=== PATIENT | female | born 1945 | race African-American/Black ===

== ENCOUNTER 2019-05-07 10:13 | Emergency (ER) | payer MEDICARE, MEDICAID ==
[2019-05-07 10:53] LABS: #Basophils 0.1 thou/uL (0.0-0.2); #Eosinphils 0.1 thou/uL (0.0-0.7); #Lymphocytes 0.9 thou/uL (1.20-3.40); #Monocytes 0.4 thou/uL (0.11-0.59); #Neutrophils 4.7 thou/uL (1.40-6.50); %Basophils 1.7 % (0.0-1.0); %Eosinophils 1.1 % (0.0-10.0); %Monocytes 5.8 % (0.0-10.0); %Neutrophils 77.5 % (42.0-75.0); Hemoglobin 15.8 g/dL (12.0-16.0); Mean Corpuscular HGB CONC 31.5 g/dL (32.0-36.0); Mean Corpuscular Hemoglobin 25.8 pg (27.0-31.0); Mean Corpuscular Volume 81.9 fL (78.0-98.0); Mean Platelet Volume 7.1 fL (7.4-10.4); Platelet Count 169 thou/uL (130-400); RBC Distribution Width 13.6 % (11.5-14.5); Red Blood Cell (RBC) Count 6.11 mill/uL (4.20-5.40); White Blood Cell (WBC) Count 6.1 thou/uL (4.8-10.8)
--- NOTE | 2019-05-07 11:00 | CT ---
CT LUMBAR SPINE WITHOUT CONTRAST: INDICATIONS: History of with fall and back pain COMPARISON: None. TECHNIQUE: Multiple CT images were obtained of the lumbar spine without contrast. Axial, coronal, and sagittal r eformatted images were constructed from the raw data. FINDINGS: Visualized retroperitoneal and paravertebral soft tissues: There is a 4.4 cm cyst involving the mid t o lower left kidney. There is a 3.2 cm cyst involving the left mid kidney. There is a hyperdense lesion involving the interpolar right kidney measuring 1.2 cm on image 66 of series 2. There is an 11 .4 cm lipoma involving the anterior abdominal wall. There is ectasia of the infrarenal abdominal aorta measuring up to 2.6 cm. There are moderate to severe vascular calcifications involving the abdo sabas pelvic vasculature. There is wall thickening with pericolonic inflammatory stranding involving the proximal sigmoid colon suspicious for diverticulitis. Spinal alignment: Within normal limits. Spinal instrumentation or postsurgical change: None There is a inferior endplate wedge compression fracture of L1 with some mild posterior retropulsion o f bone fragments from the posterior inferior aspect of L1 causing mild effacement of the ventral spinal canal. There is approximately 33% loss of height of the central aspect of the L1 vertebral bod y. No additional fracture is evident. There is mild multilevel spondylosis of the lumbar spine. There is diffuse osteopenia. IMPRESSION: 1. Acute inferior endplate wedge compression fracture of L1 with 33% loss of height. 2. Noncomplicated sigmoid diverticulitis. 3. Left renal cysts. 4. Hyper dense lesion involving the inferior pole the right kidney may reflect a proteinaceous cyst o r possibly a solid mass. Renal ultrasound is recommended for additional characterization. 5. Anterior abdominal wall subcutaneous lipoma measuring 11.4 cm within the midline. 6. Mild ectasia of the infrarenal abdominal aorta with moderate to severe vascular calcifications of the abdominal pelvic vasculature.
--- NOTE | 2019-05-07 11:04 | RAD ---
XR Chest 1 View Portable History: Hypertension Comparison: None. Findings: Heart size mildly enlarged. Mild pulmonary venous congestion. No pneumothorax. No effusion. Dense calcifications of the aorta. Moderate degenerative changes, clavicular joints. Impression: Cardiomegaly and mild pulmonary venous congestion.
[2019-05-07 11:12] LABS: ALT (SGPT) 15 U/L (8-55); AST (SGOT) 19 U/L (5-34); Albumin 4.3 g/dL (3.4-4.8); Alkaline Phosphatase 72 U/L (40-150); Anion Gap 16 mmol/L (10-20); BUN (Urea Nitrogen) 13 mg/dL (9.8-20.1); Bilirubin, Total 0.8 mg/dL (0.2-1.2); Calc. Creatinine Clearance 0 mL/min (70-130); Calcium 9.9 mg/dL (7.8-10.44); Carbon Dioxide 25 mmol/L (23-31); Chloride 105 mmol/L (98-107); Estimated GFR-MDRD 52; Globulin 3.5 g/dL (2.4-3.5); Glucose 131 mg/dL (83-110); Potassium 3.7 mmol/L (3.5-5.1); Protein, Total 7.8 g/dL (6.0-8.3); Sodium 142 mmol/L (136-145)
[2019-05-07] MEDS ORDERED: hydrALAZINE 20 MG/ML VIAL ONE (11:19)
[2019-05-07] MEDS ORDERED: Acetaminophen/Codeine 30-300mg Tablet ONE (11:40)
[2019-05-07] MEDS ORDERED: Ketorolac Tromethamine 10 MG TAB ONE (12:01)
== END 2019-05-07 12:45 | disposition home or self-care (01) ==
LOC: MADERS 10:13
DX: S32.019A Unspecified fracture of first lumbar vertebra, initial encounter for closed fracture (principal); I16.1 Hypertensive emergency; K57.30 Diverticulosis of large intestine without perforation or abscess without bleeding; D17.1 Benign lipomatous neoplasm of skin and subcutaneous tissue of trunk; I10 Essential (primary) hypertension; Z79.899 Other long term (current) drug therapy; Z79.84 Long term (current) use of oral hypoglycemic drugs; W01.0XXA Fall on same level from slipping, tripping and stumbling without subsequent striking against object, initial encounter; Y93.01 Activity, walking, marching and hiking
CPT/HCPCS: 36415; 71045; 72131; 80053; 83880; 84484; 85025; 93005; 94760; 96374; J0360